=== PATIENT | male | born 1985 | race Caucasian/White ===

== ENCOUNTER 2019-06-08 09:52 | Emergency (ER) | payer OTHER ==
[~2019-06-08] VITALS: Ht 170.2 cm; Wt 68.0 kg
[2019-06-08 09:53] VITALS: BP 109/79
== END 2019-06-08 11:45 | disposition home or self-care (01) ==
LOC: ER 09:52
DX: S61.211A Laceration without foreign body of left index finger without damage to nail, initial encounter (principal); F17.210 Nicotine dependence, cigarettes, uncomplicated; W26.0XXA Contact with knife, initial encounter; Y93.89 Activity, other specified; Y92.89 Other specified places as the place of occurrence of the external cause; Y99.8 Other external cause status

== ENCOUNTER 2019-06-26 22:14 | Emergency (ER) | payer OTHER ==
[~2019-06-26] VITALS: Ht 170.2 cm; Wt 68.0 kg
[2019-06-26 22:16] VITALS: BP 130/76
[2019-06-26] MEDS ORDERED: DOXYCYCLINE 10100 MG PO (22:41)
== END 2019-06-26 22:47 | disposition home or self-care (01) ==
LOC: ER 22:14
DX: L02.512 Cutaneous abscess of left hand (principal); L03.114 Cellulitis of left upper limb; F17.210 Nicotine dependence, cigarettes, uncomplicated